=== PATIENT | female | born 1930 | race Caucasian/White ===

== ENCOUNTER 2018-01-19 17:00 | Emergency (ER) | payer MEDICARE ==
[~2018-01-19] VITALS: Ht 167.6 cm; Wt 60.5 kg
[2018-01-19 17:13] VITALS: Ht 167.6 cm; Wt 60.5 kg
[2018-01-19] MEDS ORDERED: PRO-AIR (17:18)
[2018-01-19] MEDS ORDERED: ZYRTEC10 MG PO (17:19)
[2018-01-19] MEDS ORDERED: SYSTANE NIGHTT3.5 GM EACH EYE (17:19)
[2018-01-19] MEDS ORDERED: FLUTICASONE PRO16 GM NASAL (17:19)
[2018-01-19] MEDS ORDERED: MIRALAX17 GM PO (17:20)
[2018-01-19] MEDS ORDERED: SINGULAIR10 MG PO (17:20)
[2018-01-19] MEDS ORDERED: TIROSINT25 MCG PO (17:20)
[2018-01-19] MEDS ORDERED: CARDIZEM120 MG PO (17:20)
[2018-01-19] MEDS ORDERED: AZELASTINE HCL6 ML EACH EYE (17:21)
[2018-01-19] MEDS ORDERED: MECLIZINE HCL25 MG PO (17:21)
[2018-01-19 19:58] VITALS: BP 179/86
== END 2018-01-19 19:58 ==
LOC: D.ER 17:00
DX: S09.90XA Unspecified injury of head, initial encounter (principal); W18.30XA Fall on same level, unspecified, initial encounter; Y93.89 Activity, other specified; Y92.019 Unspecified place in single-family (private) house as the place of occurrence of the external cause; I10 Essential (primary) hypertension